=== PATIENT | male | born 2000 | race Caucasian/White ===

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

== ENCOUNTER 2022-09-01 19:27 | Emergency (ER) | payer BC, MEDICAID ==
[~2022-09-01] VITALS: Ht 190.5 cm; Wt 127.3 kg
[~2022-09-01 19:27] MED LIST: ARIP10TA15 PO; CITA-109 PO; CLON0.5T4 PO; DIVA-111 PO; TOPI50TA24 PO
[2022-09-01 20:19] LABS: BASOPHILS % (AUTO) 0.3 % (0-1); EOSINOPHILS # (AUTO) 0.3 X10'3 (0-0.9); EOSINOPHILS % (AUTO) 3.3 % (0-6); HEMATOCRIT 42.2 % (42.0-52.0); HEMOGLOBIN 13.6 g/dl (14.0-17.9); LYMPHOCYTES # (AUTO) 3.4 X10'3 (1.1-4.8); LYMPHOCYTES % (AUTO) 32.9 % (21-51); MEAN CORPUSCULAR HGB CONC 32.4 g/dL (33.0-36.5); MEAN CORPUSCULAR VOLUME 86.6 FL (78-98); MEAN PLATELET VOLUME 7.2 FL (7.4-10.4); MONOCYTES # (AUTO) 0.7 X10'3 (0-0.9); MONOCYTES % (AUTO) 7.1 % (2-12); NEUTROPHILS # (AUTO) 5.8 X10'3 (1.8-7.7); NEUTROPHILS % (AUTO) 56.4 % (42-75); PLATELET COUNT 296 X10'3 (140-440); RED BLOOD COUNT 4.87 X10'6 (4.70-6.10); RED CELL DISTRIBUTION WIDTH 14.7 % (11.5-14.5); WHITE BLOOD COUNT 10.4 X10'3 (4.5-11.0)
[2022-09-01 20:28] LABS: CALCIUM 9.2 MG/DL (8.5-10.1); CREATININE 0.87 MG/DL (0.60-1.10); ETHANOL < 0.010 GM/DL (0.0-0.010); eGFR > 90 ML/MIN
[2022-09-01 20:29] LABS: ALANINE AMINOTRANSFERASE 55 U/L (12-78); ALBUMIN 3.4 G/DL (3.4-5.0); ALBUMIN/GLOBULIN RATIO 0.9 (1.1-1.5); ALKALINE PHOSPHATASE 91 IU/L (46-116); ANION GAP 8 (8-16); ASPARTATE AMINO TRANSFERASE 44 U/L (10-37); BILIRUBIN,TOTAL 0.3 MG/DL (0.1-1.0); BLOOD UREA NITROGEN 13 MG/DL (7-18); BUN/CREATININE RATIO 14.9 (5.4-32.0); CHLORIDE 104 MMOL/L (99-107); GLUCOSE 96 MG/DL (70-104); POTASSIUM 3.9 MMOL/L (3.5-5.1); SODIUM 138 MMOL/L (135-145); TOTAL CARBON DIOXIDE 25.9 MMOL/L (24-32)
--- NOTE | 2022-09-01 20:52 | NUR ---
CONTACT NUMBER FOR AGENCY TRAINER: [phone]
[2022-09-01] MEDS ORDERED: BENZ142C9 TOP (22:26)
[2022-09-01] MEDS ORDERED: VALS160T30 PO (22:26)
[2022-09-01] MEDS ORDERED: CLON0.5T23 PO (22:26)
[2022-09-01] MEDS ORDERED: traZODone 50mg tablet PO ONE (22:35)
--- NOTE | 2022-09-01 23:27 | NUR ---
Patient is sleeping comfortably now and has a sitter from his [facility] at bedside.
--- NOTE | 2022-09-02 01:23 | NUR ---
Patient sleeping comfortably.
--- NOTE | 2022-09-02 05:24 | NUR ---
Patient sitting up playing cards with sitter.
[2022-09-02] MEDS ORDERED: losartan 50mg tablet PO SCH (08:00)
[2022-09-02] MEDS ORDERED: clonazePAM 0.5mg tablet PO SCH (08:00)
[2022-09-02] MEDS ORDERED: topiramate 25mg tablet PO SCH (08:00)
[2022-09-02] MEDS ORDERED: citalopram 20mg tablet PO SCH (08:00)
[2022-09-02] MEDS ORDERED: divalproex 250mg tablet, delayed-release PO SCH (08:00)
[2022-09-02 10:23] LABS: URINE AMPHETAMINE SCREEN NEGATIVE (Neg); URINE BARBITUATE SCREEN NEGATIVE (Neg); URINE BENZODIAZEPINES SCREEN NEGATIVE (Neg); URINE CANNABINOID SCREEN NEGATIVE (Neg); URINE COCAINE SCREEN NEGATIVE (Neg); URINE METHADONE SCREEN NEGATIVE (Neg); URINE OPIATE SCREEN NEGATIVE (Neg); URINE PHENCYCLIDINE SCREEN NEGATIVE (Neg)
--- NOTE | 2022-09-02 10:50 | NUR ---
MATILDA SCREEN FAXED TO [facility]
--- NOTE | 2022-09-02 12:12 | NUR ---
PER STOCK CLERK, PT WILL FOLLOW UP WITH [facility] AFTER D/C
[2022-09-02 13:02] VITALS: BP 134/68
== END 2022-09-02 13:04 | disposition home or self-care (01) ==
LOC: ER 19:27
DX: R45.6 Violent behavior (principal); Z20.822 Contact with and (suspected) exposure to COVID-19
CPT/HCPCS: 36415; 80053; 80305; 80320; 85025; 87811; 99285

== ENCOUNTER 2022-12-06 20:38 | Emergency (ER) | payer BC, MEDICAID ==
[~2022-12-06] VITALS: Ht 188 cm; Wt 155.0 kg
[~2022-12-06 20:38] MED LIST changes: -ARIP10TA15 PO; +BENZ142C9 TOP; +CLON0.5T23 PO; -CLON0.5T4 PO; +TOPI-253 PO; -TOPI50TA24 PO; +VALS160T30 PO
[2022-12-06] MEDS ORDERED: proparacaine 0.5% ophthalmic drops 15ml EACHEYE ONE (20:50)
[2022-12-06 20:54] VITALS: BP 139/100
== END 2022-12-06 22:01 | disposition home or self-care (01) ==
LOC: ER 20:40
DX: T65.891A Toxic effect of other specified substances, accidental (unintentional), initial encounter (principal); H57.13 Ocular pain, bilateral; Y92.89 Other specified places as the place of occurrence of the external cause
CPT/HCPCS: 99283; J7030

== ENCOUNTER 2023-01-26 19:40 | Emergency (ER) | payer BC, MEDICAID ==
[~2023-01-26] VITALS: Ht 185.4 cm; Wt 156.8 kg
[2023-01-26] MEDS ORDERED: QUEtiapine 25mg tablet PO ONE (22:20)
[2023-01-26] MEDS ORDERED: clonazePAM 1mg tablet PO ONE (22:20)
[2023-01-26 22:49] LABS: COLOR,URINE YELLOW (Yellow); GLUCOSE, URINE NEGATIVE (Neg); KETONES,URINE NEGATIVE (Neg); LEUKOCYTE ESTERASE ,URINE NEGATIVE (Neg); NITRITES, URINE NEGATIVE (Neg); OCCULT BLOOD,URINE NEGATIVE (Neg); PROTEIN,URINE NEGATIVE (Neg)
[2023-01-26] MEDS ORDERED: QUET100T34 PO (22:52)
[2023-01-26 23:06] LABS: BASOPHILS # (AUTO) 0.1 X10'3 (0-0.2); BASOPHILS % (AUTO) 0.7 % (0-1); EOSINOPHILS # (AUTO) 0.3 X10'3 (0-0.9); EOSINOPHILS % (AUTO) 2.6 % (0-6); LYMPHOCYTES # (AUTO) 3.5 X10'3 (1.1-4.8); LYMPHOCYTES % (AUTO) 35.2 % (21-51); MEAN CORPUSCULAR HEMOGLOBIN 28.2 PG (27.0-31.0); MEAN CORPUSCULAR HGB CONC 33.2 g/dL (33.0-36.5); MEAN CORPUSCULAR VOLUME 84.9 FL (78-98); MEAN PLATELET VOLUME 7.3 FL (7.4-10.4); MONOCYTES # (AUTO) 0.7 X10'3 (0-0.9); MONOCYTES % (AUTO) 6.9 % (2-12); NEUTROPHILS # (AUTO) 5.4 X10'3 (1.8-7.7); NEUTROPHILS % (AUTO) 54.6 % (42-75); PLATELET COUNT 305 X10'3 (140-440); RED BLOOD COUNT 4.94 X10'6 (4.70-6.10); RED CELL DISTRIBUTION WIDTH 14.2 % (11.5-14.5)
[2023-01-26 23:07] LABS: URINE AMPHETAMINE SCREEN NEGATIVE (Neg); URINE BARBITUATE SCREEN NEGATIVE (Neg); URINE BENZODIAZEPINES SCREEN NEGATIVE (Neg); URINE CANNABINOID SCREEN NEGATIVE (Neg); URINE COCAINE SCREEN NEGATIVE (Neg); URINE METHADONE SCREEN NEGATIVE (Neg); URINE OPIATE SCREEN NEGATIVE (Neg); URINE PHENCYCLIDINE SCREEN NEGATIVE (Neg)
[2023-01-26] MEDS ORDERED: quetiapine 100mg tablet PO SCH (23:09)
[2023-01-26 23:21] LABS: ALANINE AMINOTRANSFERASE 42 U/L (12-78); ALBUMIN 3.3 G/DL (3.4-5.0); ALKALINE PHOSPHATASE 103 IU/L (46-116); ANION GAP 8 (8-16); ASPARTATE AMINO TRANSFERASE 22 U/L (10-37); BILIRUBIN,TOTAL 0.3 MG/DL (0.1-1.0); BLOOD UREA NITROGEN 10 MG/DL (7-18); BUN/CREATININE RATIO 10.1 (10.0-20.0); CALCIUM 8.6 MG/DL (8.5-10.1); CHLORIDE 105 MMOL/L (99-107); CREATININE 0.99 MG/DL (0.60-1.10); GLUCOSE 103 MG/DL (70-104); SODIUM 140 MMOL/L (135-145); TOTAL CARBON DIOXIDE 26.6 MMOL/L (24-32); TOTAL PROTEIN 6.7 G/DL (6.4-8.2); eGFR > 90 ML/MIN
[2023-01-26 23:25] LABS: CLARITY,URINE SLIGHTLY CLOUDY (Clear); UA COLLECTION TYPE CLN CATCH MIDSTREAM
[2023-01-26 23:26] LABS: RBC,URINE 0-2 /HPF (0-2); WBC,URINE 0-4 /HPF (0-4)
[2023-01-26 23:27] LABS: ETHANOL < 0.010 GM/DL (0.0-0.010)
[2023-01-26 23:27] LABS: AMORPHOUS PHOSPHATES 2+; BACTERIA,URINE FEW /HPF (Neg); SQUAMOUS EPITHELIAL CELL,UR FEW /LPF (FEW)
[2023-01-26] MEDS: topiramate 25mg tablet PO SCH (23:35)
[2023-01-26] MEDS: divalproex 250mg tablet, delayed-release PO SCH (23:35)
--- NOTE | 2023-01-27 00:37 | NUR ---
SITTER AT BEDSIDE
--- NOTE | 2023-01-27 04:34 | NUR ---
sitter not in room. sitter left with no notifcation to staff that he was leaving. charge coordinator informed.
[2023-01-27] MEDS ORDERED: losartan 50mg tablet PO SCH (08:00)
[2023-01-27] MEDS ORDERED: citalopram 20mg tablet PO SCH (08:00)
--- NOTE | 2023-01-27 09:47 | NUR ---
Received report from Elbert LYNCH. Patient resting in bed with eyes closed at this time, respirations are even and unlabored.
[2023-01-27] MEDS: divalproex 250mg tablet, delayed-release PO SCH (11:08)
[2023-01-27] MEDS: topiramate 25mg tablet PO SCH (11:08)
[2023-01-27 11:10] VITALS: BP 148/97
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
[2023-01-27] MEDS ORDERED: LORazepam 1 MG tablet PO PRN (11:15)
--- NOTE | 2023-01-27 11:17 | NUR ---
PRN ativan administered with scheduled medication. Patient was accepting as caregiver had just arrived
--- NOTE | 2023-01-27 11:55 | NUR ---
Patient sitting in room with caregiver, observed playing games on a handheld device
--- NOTE | 2023-01-27 12:08 | NUR ---
MENTAL HEALTH PACKET FAXED TO [facility]
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
--- NOTE | 2023-01-27 12:10 | NUR ---
SPOKE WITH DELFIN AT [facility] - [phone] REGARDING PT. LEAVING AMA. CAREGIVER WITH PT.. PT IS COMBATIVE. WEARING RED TSHIRT AND WHITE SHORTS.
[2023-01-27] MEDS ORDERED: clonazePAM 1mg tablet PO SCH (21:00)
[2023-01-27] MEDS ORDERED: quetiapine 100mg tablet PO SCH (21:00)
== END 2023-01-27 12:10 | disposition left against medical advice (07) ==
LOC: ER 19:40
DX: R45.6 Violent behavior (principal)
CPT/HCPCS: 36415; 80053; 80305; 80320; 81001; 84443; 85025; 99285

== ENCOUNTER 2023-04-29 10:13 | Emergency (ER) | payer BC, MEDICAID ==
[~2023-04-29] VITALS: Ht 188 cm; Wt 160.0 kg
[~2023-04-29 10:13] MED LIST changes: +QUET100T34 PO
[2023-04-29 10:48] VITALS: BP 152/80; PULSE 90; RESP 18; O2SAT 98
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
--- NOTE | 2023-04-29 14:05 | NUR ---
Pt had labs drawn and is currently in bed sleeping with staff from [facility] at bedside.
[2023-04-29 14:51] LABS: BASOPHILS # (AUTO) 0.1 X10'3 (0-0.2); BASOPHILS % (AUTO) 0.8 % (0-1); EOSINOPHILS # (AUTO) 0.4 X10'3 (0-0.9); EOSINOPHILS % (AUTO) 3.4 % (0-6); HEMATOCRIT 40.6 % (42.0-52.0); HEMOGLOBIN 12.9 g/dl (14.0-17.9); LYMPHOCYTES # (AUTO) 4.9 X10'3 (1.1-4.8); LYMPHOCYTES % (AUTO) 42.7 % (21-51); MEAN CORPUSCULAR HEMOGLOBIN 27.6 PG (27.0-31.0); MEAN CORPUSCULAR HGB CONC 31.9 g/dL (33.0-36.5); MEAN CORPUSCULAR VOLUME 86.6 FL (78-98); MEAN PLATELET VOLUME 7.8 FL (7.4-10.4); MONOCYTES # (AUTO) 0.8 X10'3 (0-0.9); MONOCYTES % (AUTO) 7.4 % (2-12); NEUTROPHILS # (AUTO) 5.2 X10'3 (1.8-7.7); NEUTROPHILS % (AUTO) 45.7 % (42-75); PLATELET COUNT 252 X10'3 (140-440); RED BLOOD COUNT 4.69 X10'6 (4.70-6.10); RED CELL DISTRIBUTION WIDTH 14.4 % (11.5-14.5); WHITE BLOOD COUNT 11.5 X10'3 (4.5-11.0)
[2023-04-29 15:05] LABS: ALANINE AMINOTRANSFERASE 31 U/L (12-78); ALBUMIN 3.2 G/DL (3.4-5.0); ALBUMIN/GLOBULIN RATIO 0.9 (1.1-1.5); ALKALINE PHOSPHATASE 95 IU/L (46-116); ANION GAP 7 (8-16); ASPARTATE AMINO TRANSFERASE 25 U/L (10-37); BILIRUBIN,TOTAL 0.2 MG/DL (0.1-1.0); BLOOD UREA NITROGEN 17 MG/DL (7-18); BUN/CREATININE RATIO 19.8 (10.0-20.0); CALCIUM 8.9 MG/DL (8.5-10.1); CHLORIDE 106 MMOL/L (99-107); CREATININE 0.86 MG/DL (0.60-1.10); GLUCOSE 113 MG/DL (70-104); POTASSIUM 3.7 MMOL/L (3.5-5.1); SODIUM 138 MMOL/L (135-145); TOTAL CARBON DIOXIDE 25.4 MMOL/L (24-32); TOTAL PROTEIN 6.6 G/DL (6.4-8.2); eCRCL 157 ML/MIN; eGFR > 90 ML/MIN
[2023-04-29 15:14] LABS: ETHANOL < 10 MG/DL (<10); THYROID STIMULATING HORMONE 1.73 ulU/ml (0.34-4.50)
--- NOTE | 2023-04-29 16:45 | NUR ---
Pt able to provide urine sample and it was taken to lab.
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
--- NOTE | 2023-04-29 17:04 | NUR ---
[facility] PACKET WAS FAXED.
[2023-04-29] MEDS ORDERED: clonazePAM 1mg tablet PO ONE (17:30)
--- NOTE | 2023-04-29 18:03 | NUR ---
[facility] recinded Pt's 5150 hold. Pt was given klonopin 1 mg and discharged back to [facility] with his staff.
[2023-04-29 18:06] VITALS: TEMP 97.8
[2023-04-29 18:16] LABS: BILIRUBIN,URINE NEGATIVE (Neg); CLARITY,URINE CLEAR (Clear); COLOR,URINE YELLOW (Yellow); GLUCOSE, URINE NEGATIVE (Neg); KETONES,URINE NEGATIVE (Neg); LEUKOCYTE ESTERASE ,URINE NEGATIVE (Neg); NITRITES, URINE NEGATIVE (Neg); OCCULT BLOOD,URINE NEGATIVE (Neg); PROTEIN,URINE NEGATIVE (Neg); UROBILINOGEN,URINE 0.2 E.U/dL (0.2-1.0)
[2023-04-29 18:20] LABS: UA COLLECTION TYPE NON-SPECIFIED
[2023-04-29 18:32] LABS: URINE AMPHETAMINE SCREEN NEGATIVE (Neg); URINE BARBITUATE SCREEN NEGATIVE (Neg); URINE BENZODIAZEPINES SCREEN NEGATIVE (Neg); URINE CANNABINOID SCREEN NEGATIVE (Neg); URINE COCAINE SCREEN NEGATIVE (Neg); URINE METHADONE SCREEN NEGATIVE (Neg); URINE OPIATE SCREEN NEGATIVE (Neg); URINE PHENCYCLIDINE SCREEN NEGATIVE (Neg)
== END 2023-04-29 18:07 | disposition home or self-care (01) ==
LOC: ER 10:13
DX: F31.9 Bipolar disorder, unspecified (principal); Z20.822 Contact with and (suspected) exposure to COVID-19; F29 Unspecified psychosis not due to a substance or known physiological condition; Z79.899 Other long term (current) drug therapy
CPT/HCPCS: 36415; 80053; 80305; 80320; 81001; 81003; 84443; 85025; 87811; 99285

== ENCOUNTER 2024-02-05 08:10 | Emergency (ER) | payer BC, MEDICAID ==
[~2024-02-05] VITALS: Ht 188 cm; Wt 165.9 kg
[~2024-02-05 08:10] MED LIST changes: -TOPI-253 PO; +TOPI-95 PO
[2024-02-05] MEDS ORDERED: ketorolac trometh. 30mg/ml inj. IM ONE (08:25)
[2024-02-05 08:48] VITALS: BP 140/82; PULSE 106; RESP 14; TEMP 98.6; O2SAT 95
[2024-02-05 08:53] LABS: BASOPHILS # (AUTO) 0.1 X10'3 (0-0.2); BASOPHILS % (AUTO) 0.6 % (0-1); EOSINOPHILS # (AUTO) 0.4 X10'3 (0-0.9); EOSINOPHILS % (AUTO) 3.7 % (0-6); HEMATOCRIT 40.7 % (42.0-52.0); HEMOGLOBIN 13.4 g/dl (14.0-17.9); LYMPHOCYTES # (AUTO) 4.6 X10'3 (1.1-4.8); MEAN CORPUSCULAR HEMOGLOBIN 27.5 PG (27.0-31.0); MEAN CORPUSCULAR HGB CONC 32.8 g/dL (33.0-36.5); MEAN CORPUSCULAR VOLUME 83.6 FL (78-98); MEAN PLATELET VOLUME 7.1 FL (7.4-10.4); MONOCYTES # (AUTO) 0.5 X10'3 (0-0.9); MONOCYTES % (AUTO) 4.7 % (2-12); NEUTROPHILS # (AUTO) 4.7 X10'3 (1.8-7.7); PLATELET COUNT 312 X10'3 (140-440); RED BLOOD COUNT 4.87 X10'6 (4.70-6.10); RED CELL DISTRIBUTION WIDTH 14.9 % (11.5-14.5); WHITE BLOOD COUNT 10.2 X10'3 (4.5-11.0)
[2024-02-05] MEDS: ketorolac tromethamine 15mg/ml inj. IM ONE (08:59)
[2024-02-05 09:01] LABS: ALBUMIN 3.3 G/DL (3.4-5.0); ANION GAP 9 (8-16); BLOOD UREA NITROGEN 13 MG/DL (7-18); BUN/CREATININE RATIO 17.6 (10.0-20.0); CHLORIDE 102 MMOL/L (99-107); CREATININE 0.74 MG/DL (0.60-1.10); GLUCOSE 129 MG/DL (70-104); PRO BRAIN NATRIURETIC PEPTIDE 36 PG/ML (0-125); SODIUM 140 MMOL/L (135-145); TOTAL CARBON DIOXIDE 29.4 MMOL/L (24-32); eCRCL 181 ML/MIN; eGFR > 90 ML/MIN
== END 2024-02-05 10:11 | disposition home or self-care (01) ==
LOC: ER 08:10
DX: R07.9 Chest pain, unspecified (principal); F84.0 Autistic disorder; F41.9 Anxiety disorder, unspecified; Z79.899 Other long term (current) drug therapy; Z79.2 Long term (current) use of antibiotics
CPT/HCPCS: 36415; 71045; 80048; 83880; 84484; 85025; 93005; 99285

== ENCOUNTER 2025-06-24 10:00 | Emergency (ER) | payer BC, MEDICAID ==
[~2025-06-24] VITALS: Ht 190.5 cm; Wt 147.4 kg
[~2025-06-24 10:00] MED LIST changes: -CITA-109 PO; +[UNRECOGNIZED DRUG - CODE] PO
[2025-06-24 10:04] VITALS: BP 115/54; PULSE 111; RESP 16; O2SAT 99
--- NOTE | 2025-06-24 11:45 | Physician Documentation ---
History of Present Illness ~ Chief Complaint: Abscess Stated Complaint: STAPH INFECTION Time Seen by MD: 10:25 OK to notify your PCP?: Yes Primary Medical Doctor: Dr. Chatterjee @ [facility] Source: patient Mode of Arrival: POV Exam Limitations: no limitations HPI Reports having small abscess underneath right armpit for unknown amount of time, possibly 1 week. Also has a rash to axillary for which he has been given nystatin for in the past. Currently has nystatin prescription. Denies any fevers, nausea, vomiting, chills or diarrhea. Denies any drainage from the site. 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 HEENT: No injection, moist mucous membranes. Neck: Full range of motion. Respiratory: No respiratory distress, equal chest rise and fall. Chest: No accessory muscle use. Cardiovascular: Regular rate and rhythm. Gastrointestinal: Nondistended. Extremities: Normal range of motion, no deformity. Neurologic: Oriented x4. Psychiatric: Normal mood and affect. Skin: Right axillary has a small pustule on the surface and a firm nodule underneath. No fluctuance of the tissue with induration. Progress Results/Orders Reviewed/noted all lab results: Yes Results/Orders Vital Signs 06/24/25 10:04 Temp 98.4 Pulse 111 Resp 16 B/P (MAP) 115/54 Pulse Ox 99 O2 Flow Rate 0 Medical Decision Making Additional information obtaine: old records Findings Physical exam reveals a small pustule on top of a very firm nodule. There was not any fluctuance of the tissues so incision and drainage would likely not be successful. Placed on Bactrim. Differential Dx:Considerations: Include: Abscess, Bacteremia, Erysipelas, Hidrademitis suppurativa, Impetigo, Lymphangitis, Septicemia Departure Disposition: 01 HOME / SELF CARE / HOMELESS Impression: Primary Impression: Cellulitis Condition: Stable Discharge Instructions: Cellulitis, Adult, [id number] Additional Instructions: Start using the nystatin cream to the area surrounding the lesion. Antibiotics as prescribed. Follow up with her primary care provider in the next week for wound check. Return back here for any new or worsening symptoms. Continue doing hot compresses and if the wound opens and drains that is good. Referrals: NO PRIMARY CARE PROVIDER (PCP) Prescriptions Sulfamethoxazole/Trimethoprim (Bactrim Ds Tablet) 800 Mg-160 Mg Tablet 1 TAB PO Q12H for 10 Days, #20 TAB Prov: LEANA HERRMANN 06/24/25 Education Educated: Patient Educated regarding: diagnosis, treatment, prognosis, need for follow up Additional Comment Medical Screen Exam This patient recieved a medical screening examination. After reviewing the individual's medical complaints with presenting symptoms and performing an appropriate physical examination, it was determined that no immediate life-threatening emergency medical condition is present. This individual is also not a women having contractions. Signature Scribe Signature: . Attestation: Scribed for Leana Herrmann by Leana Deal NP . 06/24/25 11:41 Parts of this note were created using [employer] voice recognition software program. While efforts were made to correct any mistakes made by this voice recognition software program, nonsensical phrases may remain in this note. In addition, there may be errors and syntax, grammar, content and spelling. LEANA HERRMANN Jun 24, 2025 11:45
[2025-06-24] MEDS ORDERED: SULF1TAB49 PO (11:46)
[2025-06-24] MEDS: sulfamethoxazole/trimethoprim DS (800/160mg) tablet PO ONE (11:57)
[2025-06-24 12:03] VITALS: TEMP 98.4
== END 2025-06-24 12:06 | disposition home or self-care (01) ==
LOC: ER 10:02
DX: L03.111 Cellulitis of right axilla (principal)
CPT/HCPCS: 99283